=== PATIENT | male | born 1995 | race Caucasian/White ===

== ENCOUNTER 2024-05-22 11:53 | Emergency (ER) | payer BC, SELFPAY ==
[2024-05-22 11:58] VITALS: BP 141/85; PULSE 91; RESP 16; TEMP 36.4; O2SAT 100
[2024-05-22 13:00] VITALS: BP 124/70; PULSE 78; RESP 16; TEMP 36.7; O2SAT 100
--- NOTE | 2024-05-22 13:23 | ECG_ITS ---
Test Date: 2024-05-22 13:43:48 Measurements Intervals [place] Rate: 78 P: 17 TN: 135 QRS: 20 QRSD: 102 T: 11 QT: 336 QTc: 383 Interpretive Statements SINUS RHYTHM MINIMAL Q WAVES- HIGH LATERAL LEADS BASELINE WANDER- III, V1-V2, V4 BORDERLINE ECG No previous ECG available for comparison Electronically Signed On 05-22-2024 13:48:55 [employer] by Kevin Bower D.O.
--- NOTE | 2024-05-22 13:24 | ED.SYNCOPE ---
HPI - Syncope General Chief Complaint: Syncope Stated Complaint: near syncope Time Seen by Provider: 05/22/24 13:15 Source: patient Mode of arrival: ambulatory History of Present Illness HPI narrative: 28-year-old with history of vasovagal syncope in the past presenting for concern for near syncope. He was driving and suddenly had a few episodes of feeling lightheaded, dizzy, vision seemed to be getting blurred, and some chest tightness. Lasted a few seconds and went away. Happened 3 times he was driving. He does have notable history of vasovagal syncope in the past when he is exposed to needles or broken bones for example. Currently asymptomatic Related Data Allergies Allergy/AdvReac Type Severity Reaction Status Date / Time ibuprofen Allergy Mild Swelling Unverified 05/22/24 12:00 of the Eye Review of Systems Review of Systems: All systems reviewed & are unremarkable except as noted in HPI and below Exam Narrative: Constitutional: Generally well appearing, no acute distress Head: Atraumatic, no deformities. Eyes: Pupils equal, round, and reactive to light. Neck: Supple, no tracheal deviation, no JVD. ENMT: Mucous membranes moist Cardiovascular: S1, S2 auscultated. No murmurs, rubs, or gallops. No S3/S4. Normal Distal pulses. No peripheral edema. Respiratory: Lung sounds equal. No wheezes, rales, or rhonchi. Gastrointestinal: Abdomen was soft and non-tender. Non-distended. No rebound or guarding. Genitourinary: Deferred Musculoskeletal: Normal muscle tone and bulk. No obvious deformities or tenderness over extremities. Skin: No rashes. Neurological: Strength 5/5 in extremities. Cranial nerves I-XII grossly intact. Distal sensation intact. Mental Status: Awake, alert and oriented x3. Follows commands Course Vital Signs Vital signs: Vital Signs Temperature 36.4 C 05/22/24 11:58 Pulse Rate 91 05/22/24 11:58 Respiratory Rate 16 05/22/24 11:58 Blood Pressure 141/85 H 05/22/24 11:58 Pulse Oximetry 100 05/22/24 11:58 Oxygen Delivery Room Air 05/22/24 11:58 Temperature 36.4 C 05/22/24 11:58 Pulse Rate 91 05/22/24 11:58 Respiratory Rate 16 05/22/24 11:58 Blood Pressure 141/85 H 05/22/24 11:58 Pulse Oximetry 100 05/22/24 11:58 Oxygen Delivery Room Air 05/22/24 11:58 MDM - Syncope MDM Narrative Medical decision making narrative: Generally well-appearing 28-year-old male history of vasovagal syncope presenting for concerns for presyncopal episode x3 of the car today. On exam is very well-appearing, slightly hypertensive but blood pressures improved comes in the room. He has normal cardio respiratory normal neurological exams. Highly suspect vasovagal syncope but will obtain cardiac workup to further evaluate. Perc negative ruling out PE. EKG obtained at 1:43 p.m. shows sinus rhythm, normal intervals, no ST elevation depression, no T-wave abnormalities. Impression: No STEMI call EKG Workup is unremarkable. Patient not showing any abnormalities on monitor. Stable for discharge at this point. Highly suspect vasovagal syncope. Pt feeling improved and would like to go home at this point. Return precautions were given to the patient include any new or worsening symptoms or development of and not limited to any chest pain, shortness of breath, lightheadedness, abdominal pain, fevers, chills. Patient understands and agrees. They are to follow-up with her PCP. All questions were answered. I reviewed the patient's vital signs, history, allergies, and labs and imaging workup. Lab Data 05/22/24 13:52 05/22/24 13:52 Labs: Lab Results 05/22/24 Range/Units 13:52 WBC 7.3 (4.5-10.0) K/mm3 RBC 5.55 (4.6-6.20) M/mm3 Hgb 15.1 (14.0-18.0) g/dL Hct 44.9 (42.0-52.0) % MCV 80.9 (80-100) fl MCH 27.2 (26-34) pg MCHC 33.6 (32-36) g/dl RDW 12.8 (11.5-14.5) % Plt Count 243 (150-375) k/mm3 MPV 12.2 H (7.4-10.4) fl Immature Gran % (Auto) 0.3 (0-0.5) % Neut % (Auto) 56.5 (45.5-73.1) % Lymph % (Auto) 30.1 (18.3-44.2) % [place] % (Auto) 10.2 H (2.6-8.5) % Eos % (Auto) 1.9 (0-4.4) % Baso % (Auto) 1.0 (0.2-1.2) % Lymph # (Auto) 2.20 (0.9-3.2) K/mm3 [place] # (Auto) 0.8 H (0.1-0.6) K/mm3 Eos # (Auto) 0.1 (0-0.3) K/mm3 Baso # (Auto) 0.1 (0.0-0.1) K/mm3 Abs Immat Gran (auto) 0.02 (0.00-0.031) K/mm3 Absolute Neuts (auto) 4.1 (1.3-6.7) K/mm3 Absolute Nucleated RBC 0.000 (0.0-0.012) K/mm3 Nucleated RBC % 0.0 (0.0-0.2) % Sodium 138 (137-145) mmol/L Potassium 4.1 (3.4-5.0) mmol/L Chloride 104 (98-107) mmol/L Carbon Dioxide 25 (22-30) mmol/L Anion Gap 9 (4-12) mmol/L BUN 15 (9-20) mg/dL Creatinine 1.00 (0.7-1.3) mg/dL Estim Creat Clear Calc 103 ml/min Estimated GFR > 60 (59 - ) Glucose 96 (65-110) mg/dL Calcium 9.9 (8.4-10.2) mg/dL Total Bilirubin 0.5 (0.2-1.3) mg/dL AST 28 (17-59) U/L ALT 27 (6-50) U/L Alkaline Phosphatase 93 (38-126) U/L Troponin I < 0.012 (0.000-0.034) ng/mL Total Protein 9.0 H (6.3-8.2) g/dL Albumin 5.1 (3.5-5.1) g/dL Discharge Plan Discharge Clinical Impression: Vasovagal syncope Patient Disposition: Home, Self-Care Condition: Stable Instructions: Antibiotic Form, Near Syncope (ED) Additional Instructions: Drink lots of fluids Follow-up/Referrals: Greta Mills MD [Primary Care Provider] - Time of Disposition: 14:42
[2024-05-22 14:00] VITALS: BP 118/68; PULSE 74; RESP 16; TEMP 36.8; O2SAT 100
[2024-05-22 14:06] LABS: Basophils Absolute Auto 0.1 K/mm3 (0.0-0.1); Eosinophils Absolute Auto 0.1 K/mm3 (0-0.3); Eosinophils Percent Auto 1.9 % (0-4.4); Hematocrit 44.9 % (42.0-52.0); Hemoglobin 15.1 g/dL (14.0-18.0); Immature Granulocyte Absolute 0.02 K/mm3 (0.00-0.031); Immature Granulocyte Percent A 0.3 % (0-0.5); Lymphocytes Percent Auto 30.1 % (18.3-44.2); Mean Corpuscular HGB Conc 33.6 g/dl (32-36); Mean Corpuscular Hemoglobin 27.2 pg (26-34); Mean Corpuscular Volume 80.9 fl (80-100); Mean Platelet Volume 12.2 fl (7.4-10.4); Monocytes Absolute Auto 0.8 K/mm3 (0.1-0.6); Monocytes Percent Auto 10.2 % (2.6-8.5); Neutrophils Absolute Auto 4.1 K/mm3 (1.3-6.7); Neutrophils Percent Auto 56.5 % (45.5-73.1); Platelet Count Result 243 k/mm3 (150-375); Red Blood Count 5.55 M/mm3 (4.6-6.20); Red Cell Distribution Width 12.8 % (11.5-14.5); White Blood Count 7.3 K/mm3 (4.5-10.0)
[2024-05-22 14:21] LABS: Alanine Aminotransferase 27 U/L (6-50); Albumin Level 5.1 g/dL (3.5-5.1); Alkaline Phosphatase 93 U/L (38-126); Anion Gap 9 mmol/L (4-12); Aspartate Amino Transferase 28 U/L (17-59); Bilirubin,Total 0.5 mg/dL (0.2-1.3); Blood Urea Nitrogen 15 mg/dL (9-20); Calcium 9.9 mg/dL (8.4-10.2); Carbon Dioxide 25 mmol/L (22-30); Chloride 104 mmol/L (98-107); Estimated CRCL calculation 103 ml/min; Estimated Glomerular Filt Rate > 60; Glucose 96 mg/dL (65-110); Potassium 4.1 mmol/L (3.4-5.0); Sodium 138 mmol/L (137-145)
[2024-05-22 14:28] LABS: Troponin I < 0.012 ng/mL (0.000-0.034)
[2024-05-22 15:01] VITALS: BP 120/70; PULSE 76; RESP 16; TEMP 36.6; O2SAT 98
== END 2024-05-22 15:03 | disposition home or self-care (01) ==
LOC: ANHED 14:55
PROVIDERS: Emergency Provider Emergency Medicine; PCP Physician Assistant
DX: R55 Syncope and collapse (principal)
CPT/HCPCS: 36415; 80053; 84484; 85025; 93005; 99284